=== PATIENT | female | born 1940 | race Caucasian/White ===

== ENCOUNTER 2022-02-08 20:05 | Emergency (ER) | payer MEDICARE, OTHER ==
[~2022-02-08] VITALS: Ht 165 cm; Wt 84.0 kg
[2022-02-08] MEDS ORDERED: TETANUS,DIPTH,PERTUSS P/F (BOOSTRIX) 0.5 ML VIAL IM ONE ×2 (20:15→21:26)
--- NOTE | 2022-02-08 20:22 | ED Fall/Injury ---
General Chief Complaint: Trauma-Non Activation Stated Complaint: FALL Nursing Triage Note: BROUGHT IN BY [facility] PT TRIPPED, FELL FROM STANDING POSITION. DENIES LOC. C/O RIGHT KNEE PAIN/SWELLING, FACIAL & HAND ABRAISIONS/LACERATIONS Source: patient History of Present Illness Date Seen by Provider: Feb 08, 2022 Time Seen by Provider: 20:03 Initial Comments PT ARRIVES VIA EMS FROM HOME--PT LIVES ALONE PT WAS WALKING OUTSIDE, WEARING "FLIP-FLOPS" AND STUBBED/CAUGHT HER TOE ON THE PAVEMENT AND FELL FORWARD ONTO PAVEMENT DID NOT ATTEMPT TO STAND AFTER THE INCIDENT, BUT WAS ABLE TO BEAR WEIGHT WHEN ASSISTED TO STAND FOR EMS. HAS PAIN AND ABRASIONS TO FACE AND PALMS HAS SWELLING AND BRUISING TO RIGHT KNEE, BUT STATES IT DOES NOT HURT. DENIES NECK OR BACK PAIN DENIES HIP OR LEG PAIN DENIES ARM PAIN DENIES HEADACHE DENIES VISION CHANGES NO MIS-ALIGNMENT OF TEETH OR BITING TONGUE NO DIZZINESS NO PARESTHESIAS OR MOTOR DEFICITS NO CHEST PAIN OR SHORTNESS OF BREATH NO ABDOMINAL PAIN OR NAUSEA/VOMITING PT HAS NOT TAKEN HER BLOOD PRESSURE MEDICATION TODAY PT IS ON 81 MG ASPIRIN, NO OTHER BLOOD THINNERS PT IS CURRENTLY ON PREDNISONE FOR "HIGH PLATELETS"--STARTED BY DR. MONCADA LAST WEEK. DOES NOT SEE HEMATOLOGY/ONCOLOGY. PT HAS HISTORY OF POLYCYTHEMIA PCP: DR. MONCADA Allergies and Home Medications Allergies Coded Allergies: codeine (Unverified Allergy, Unknown, 02/08/22) Patient Home Medication List Home Medication List Reviewed: Yes Cephalexin (Cephalexin) 500 Mg Tablet, 500 MG PO QID Prescribed by: WESLEY ESPINOZA on 02/08/222153 Tramadol HCl (Ultram) 50 Mg Tablet, 50 MG PO Q4H Prescribed by: WESLEY ESPINOZA on 02/08/222221 Review of Systems Review of Systems Constitutional: no symptoms reported Eyes: No Symptoms Reported Ears, Nose, Mouth, Throat: see HPI Respiratory: no symptoms reported Cardiovascular: no symptoms reported Gastrointestinal: no symptoms reported Genitourinary: no symptoms reported Musculoskeletal: see HPI Skin: see HPI Psychiatric/Neurological: No Symptoms Reported Past Utiqhgh-Qtglxq-Tikmya Hx Patient Social History Tobacco Use?: No Substance use?: No Alcohol Use?: Yes Alcohol Frequency: Once in a while Pt feels they are or have been: No Immunizations Up To Date First/Initial COVID19 Vaccinat: X3 Past Medical History Surgery/Hospitalization HX: CABG, CHOLECYSTECTOMY, APPENDECTOMY, HTN, POLYCYTHEMIA Surgeries: Yes Appendectomy, Cardiac, CABG, Gallbladder Respiratory: No Cardiac: Yes Coronary Artery Disease, High Cholesterol, Hypertension Neurological: No MANAGER CT History: Menopausal Genitourinary: No Gastrointestinal: No Musculoskeletal: No Endocrine: No HEENT: No Cancer: No Psychosocial: No Integumentary: No Blood Disorders: Yes (POLYCYTHEMIA) Physical Exam Vital Signs Vital Signs - First Documented 02/08/22 20:05 Temp 36.8 Pulse 74 Resp 16 B/P (MAP) 237/85 (135) Pulse Ox 97 O2 Delivery Room Air Capillary Refill : Less Than 3 Seconds Height, Weight, BMI Height: '" Weight: lbs. oz. kg; 30.00 BMI Method: General Appearance: WD/WN, no apparent distress HEENT: PERRL/EOMI, TMs normal, pharynx normal, other (EXTENSIVE ABRASIONS TO MID FACE FROM FOREHEAD TO CHIN, WITH BRUISING AND SWELLING TO FOREHEAD, NOSE AND LOWER LIP/CHIN AREA. NO DEFORMITY. NO INTRA-ORAL INJURY. NO TMJ TENDERNESS. EARLY PERIORBITAL HEMATOMAS. GLOBES ARE NORMAL. ) Neck: non-tender, full range of motion, supple, normal inspection Cardiovascular: normal peripheral pulses, regular rate, rhythm, no edema, no JVD, no murmur Respiratory: chest non-tender, normal breath sounds, no respiratory distress, no accessory muscle use Peripheral Pulses: 2+ Dorsalis Pedis (R), 2+ Left Dors-Pedis (L), 2+ Radial Pulses (R), 2+ Radial Pulses (L) Gastrointestinal: normal bowel sounds, non tender, soft Back: normal inspection, no CVA tenderness, no vertebral tenderness Extremities: normal range of motion, no pedal edema, other (ABRASIONS AND BRISING TO PALMS; RIGHT PALM AT BASE OF 5TH FINGER WITH 2 CM MACERATED AND CONTAMINATED LACERATION. NO BLEEDING. SWELLING AND ABRASION AND ECCHYMOSIS TO RIGHT KNEE-SLIGHT TENDERNESS. MINOR ABRASIONS TO LEFT KNEE--NON-TENDER, ECCHYMOSIS TO RIGHT FOREARM--NON-TENDER. FULL ROM OF ALL EXTREMITIES., MOTOR/SENSORY/VASCULAR INTACT. NEARLY ALL ABRASIONS HAVE SOME CONTAMINATION WITH DIRT AND ASPHALT AND GRIME. ) Neurologic/Psychiatric: eyelet riveter II-XII nml as tested, no motor/sensory deficits, alert, normal mood/affect, oriented x 3; No abnormal cerebellar tests Skin: normal color, warm/dry, other (INJURIES NOTED ABOVE) Madina Coma Score Best Eye Response: (4) Open Spontaneously Best Verbal Response: (5) Oriented Best Motor Response: (6) Obeys Commands Madina Total: 15 Progress/Results/Core Measures Results/Orders Lab Results Laboratory Tests Test 02/08/22 20:16 Range/Units White Blood Count 15.8 H 4.3-11.0 10^3/uL Red Blood Count 4.06 3.80-5.11 10^6/uL Hemoglobin 12.1 11.5-16.0 g/dL Hematocrit 37 35-52 % Mean Corpuscular Volume 91 80-99 fL Mean Corpuscular Hemoglobin 30 25-34 pg Mean Corpuscular Hemoglobin Concent 33 32-36 g/dL Red Cell Distribution Width 16.1 H 10.0-14.5 % Platelet Count 380 130-400 10^3/uL Mean Platelet Volume 10.1 9.0-12.2 fL Immature Granulocyte % (Auto) 1 % Neutrophils (%) (Auto) 80 H 42-75 % Lymphocytes (%) (Auto) 13 12-44 % Monocytes (%) (Auto) 6 0-12 % Eosinophils (%) (Auto) 0 0-10 % Basophils (%) (Auto) 0 0-10 % Neutrophils # (Auto) 12.7 H 1.8-7.8 10^3/uL Lymphocytes # (Auto) 2.0 1.0-4.0 10^3/uL Monocytes # (Auto) 0.9 0.0-1.0 10^3/uL Eosinophils # (Auto) 0.0 0.0-0.3 10^3/uL Basophils # (Auto) 0.0 0.0-0.1 10^3/uL Immature Granulocyte # (Auto) 0.2 H 0.0-0.1 10^3/uL Neutrophils % (Manual) 80 % Lymphocytes % (Manual) 13 % Monocytes % (Manual) 7 % Blood Morphology Comment NORMAL Prothrombin Time 14.5 12.2-14.7 SEC INR Comment 1.1 0.8-1.4 Activated Partial Thromboplast Time 26 24-35 SEC Sodium Level 137 135-145 MMOL/L Potassium Level 3.9 3.6-5.0 MMOL/L Chloride Level 103 98-107 MMOL/L Carbon Dioxide Level 21 21-32 MMOL/L Anion Gap 13 5-14 MMOL/L Blood Urea Nitrogen 28 H 7-18 MG/DL Creatinine 0.83 0.60-1.30 MG/DL Estimat Glomerular Filtration Rate 70 BUN/Creatinine Ratio 34 Glucose Level 131 H 70-105 MG/DL Calcium Level 9.4 8.5-10.1 MG/DL Corrected Calcium 9.7 8.5-10.1 MG/DL Total Bilirubin 0.5 0.1-1.0 MG/DL Aspartate Amino Transf (AST/SGOT) 24 5-34 U/L Alanine Aminotransferase (ALT/SGPT) 32 0-55 U/L Alkaline Phosphatase 79 40-136 U/L Total Protein 7.4 6.4-8.2 GM/DL Albumin 3.6 3.2-4.5 GM/DL My Orders Orders - WESLEY ESPINOZA DO Ed Iv/Invasive Line Start (02/08/22 20:09) Monitor-Rhythm Ecg Trace Only (02/08/22 20:09) Ct Head/Face/Cervical Wo (02/08/22 20:09) Cbc With Automated Diff (02/08/22 20:09) Comprehensive Metabolic Panel (02/08/22 20:09) Protime With Inr (02/08/22 20:09) Partial Thromboplastin Time (02/08/22 20:09) Chest 1 View, Ap/Pa Only (02/08/22 20:09) Knee, Right, 3 Views (02/08/22 20:09) Pelvis 1 To 2 Views (02/08/22 20:09) Hand, 3 Views, Bilateral (02/08/22 20:09) Dipht,Pertuss(Acell),Tet Adult (Boostrix (02/08/22 20:15) Manual Differential (02/08/22 20:16) Dipht,Pertuss(Acell),Tet Adult (Boostrix (02/08/22 21:26) Wound Dressing-Ed (02/08/22 21:29) Rx-Mupirocin 2% Oint (Rx-Bactroban) (02/08/22 21:29) Cefazolin Injection (Ancef Injection) (02/08/22 21:30) Hydralazine Injection (Apresoline Inject (02/08/22 22:00) Rx-Tramadol Hcl (Rx-Ultram) (02/08/22 22:22) Medications Given in ED Current Medications Medications Dose Ordered Sig/Liam Route Start Time Stop Time Status Last Admin Dose Admin Cefazolin Sodium 1,000 mg ONCE ONCE IV 02/08/22 21:30 02/08/22 21:31 DC 02/08/22 21:40 1,000 MG Diphtheria/ Tetanus/Acell Pertussis 0.5 ml ONCE ONCE IM 02/08/22 20:15 02/08/22 20:16 DC 02/08/22 21:29 0.5 ML Hydralazine HCl 10 mg ONCE ONCE IV 02/08/22 22:00 02/08/22 22:01 DC 02/08/22 22:03 10 MG Vital Signs/I&O 02/08/22 20:05 Temp 36.8 Pulse 74 Resp 16 B/P (MAP) 237/85 (135) Pulse Ox 97 O2 Delivery Room Air Blood Pressure Mean: 135 Progress Progress Note : Progress Note UNEVENTFUL ER STAY FAMILY [facility]ERS ARE HERE WITH PT PT FEELS COMFORTABLE GOING HOME PT REPEATEDLY DECLINES PAIN MEDICATIONS GIVEN: -DPT VACCINE -IV ANTIBIOTICS -HYDRALAZINE FOR HTN Diagnostic Imaging Comments XRAYS--PER RADIOLOGIST REPORTS AT 2147 CXR-- FINDINGS: Single view chest. There are postoperative changes along midline of the chest. Heart and pulmonary vasculature are normal. Lungs and pleural spaces clear. No acute osseous abnormality. IMPRESSION: No acute process. PELVIS-- FINDINGS: There is postoperative change in the right hemipelvis. No fracture or dislocation. IMPRESSION: No acute osseous abnormality. BILATERAL HANDS-- FINDINGS: 3 views of each hand. There is no acute fracture or dislocation on either side with narrowing and spurring at the 1st carpometacarpal joint spaces, bilaterally. Degenerative changes noted about the 5th metacarpal phalangeal joint on the right with punctate hyperdensities, age indeterminate. IMPRESSION: 1. Degenerative findings as above. No fracture. 2. Nonspecific soft tissue densities at the 5th metacarpal phalangeal joint on the right, age indeterminate. RIGHT KNEE-- FINDINGS: 3 views of the knee. There is a large area of soft tissue swelling anterior to the patella with subcutaneous air possible. There is a moderate joint effusion. There is moderate patellofemoral narrowing and spurring. Moderate narrowing and spurring seen in the medial and lateral joint compartments. No fracture or dislocation. There are clips in the medial soft tissues of the extremity. IMPRESSION: 1. Chronic osseous changes with no acute fracture. 2. Soft tissue swelling with possible air anteriorly, correlate for laceration. 3. Joint effusion. CT HEAD/MAXILLOFACIALS/CERVICAL SPINE--PER RADIOLOGIST REPORT AT 2211 FINDINGS: CT BRAIN: There is an anterior midline scalp hematoma. Subcutaneous air is noted suggesting laceration There is no intracranial hemorrhage with no acute infarct. No mass, mass effect or midline shift. No hydrocephalus. The calvarium is intact. Mastoid air cells clear. IMPRESSION: Scalp hematoma with a likely laceration with secondary subcutaneous air. No acute intracranial process. CT MAXILLOFACIAL: Comminuted bilateral nasal bone fractures noted with surrounding soft tissue swelling. Subcutaneous air within the anterior soft tissues of the nose also noted. There is a fracture through the mid aspect of the septum of the nose which is deviated towards the left. The remaining osseous structures appear intact. There is mucosal thickening within the sinuses. The orbits intact. Post septal spaces unremarkable. There is a right paracentral heterogeneous soft tissue within the posterior nasopharynx, likely hemorrhage. IMPRESSION; 1. Comminuted bilateral nasal bone fractures with overlying subcutaneous swelling and air. 2. Comminuted fracture of the nasal septum. Otherwise chronic findings as above. Reviewed: Reviewed by Me Departure Impression Primary Impression: Fall from standing Additional Impressions: Vixbrkunpv-lybhzptoi-pioiobg (DPT) vaccination administered at current visit Abrasion, multiple sites Abrasion of multiple sites of hand and finger RIGHT KNEE CONTIUSION AND ABRASION BILATERAL HAND CONTUSIONS CONTAMINATED LACERATION TO RIGHT PALM Closed head injury without loss of consciousness CONTAMINATED WOUNDS OF MULTIPLE SITES HTN (hypertension) CLOSED NASAL BONE FRACTURES Neck strain Disposition: 01 HOME, SELF-CARE Condition: Stable Departure-Patient Inst. Decision time for Depature: 22:20 Referrals: KAUSHIK KENNEDY MD, LISA A MD Patient Instructions: Cervical Muscle Strain (DC), Closed Head Injury (DC), DASH Diet, General Trauma (DC), High Blood Pressure (DC), Nose Fracture (DC), Preventing Falls in Older Adults, Using Cold for Pain, Wound Care (DC) Add. Discharge Instructions: ICE TO SORE AREAS AT 20 MINUTE INTERVALS CLEAN WOUNDS TWICE A DAY WITH ANTIBACTERIAL SOAP AND WATER, APPLY ANTIBIOTIC OINTMENT AND FRESH DRESSINGS TO WOUNDS ELEVATE ARMS AND LEGS MUCH POSSIBLE TAKE YOUR REGULAR MEDICATIONS PRESCRIBED FOLLOW UP WITH DR. KENNEDY, ENT, FOR NASAL FRACTURES--CALL IN THE MORNING TO SCHEDULE APPOINTMENT. FOLLOW UP WITH DR. MONCADA FOR RECHECK OF WOUNDS IN 2-3 DAYS All discharge instructions reviewed with patient and/or family. Voiced understanding. Scripts Tramadol HCl (Ultram) 50 Mg Tablet 50 MG PO Q4H for Pain, #20 TAB Prov: WESLEY ESPINOZA DO 02/08/22 Cephalexin (Cephalexin) 500 Mg Tablet 500 MG PO QID, #40 TAB Prov: WESLEY ESPINOZA DO 02/08/22 WESLEY ESPINOZA DO Feb 08, 2022 20:22
[2022-02-08 20:23] LABS: BASOPHILS % (AUTO) 0 % (0-10); EOSINOPHILS % (AUTO) 0 % (0-10); HEMATOCRIT 37 % (35-52); HEMOGLOBIN 12.1 g/dL (11.5-16.0); LYMPHOCYTES % (AUTO) 13 % (12-44); MEAN CORPUSCULAR HEMOGLOBIN 30 pg (25-34); MEAN CORPUSCULAR HGB CONC 33 g/dL (32-36); MEAN CORPUSCULAR VOLUME 91 fL (80-99); MEAN PLATELET VOLUME 10.1 fL (9.0-12.2); MONOCYTES # (AUTO) 0.9 10^3/uL (0.0-1.0); MONOCYTES % (AUTO) 6 % (0-12); NEUTROPHILS # (AUTO) 12.7 10^3/uL (1.8-7.8); NEUTROPHILS % (AUTO) 80 % (42-75); PLATELET COUNT 380 10^3/uL (130-400); WHITE BLOOD COUNT 15.8 10^3/uL (4.3-11.0)
[2022-02-08 20:34] LABS: INR 1.1 (0.8-1.4); PROTHROMBIN TIME PATIENT 14.5 SEC (12.2-14.7)
[2022-02-08 20:46] LABS: LYMPHOCYTES % (MANUAL) 13 %; MONOCYTES % (MANUAL) 7 %; NEUTROPHILS % (MANUAL) 80 %; RBC MORPH NORMAL
--- NOTE | 2022-02-08 21:26 | Diagnostic Imaging Report ---
INDICATION: Fall, pain. EXAMINATION: Pelvis, 02/08/2022. FINDINGS: There is postoperative change in the right hemipelvis. No fracture or dislocation. IMPRESSION: No acute osseous abnormality. Dictated by: Dictated on workstation # [id number]
--- NOTE | 2022-02-08 21:28 | Diagnostic Imaging Report ---
INDICATION: Fall, pain. EXAMINATION: Right knee, 02/08/2022. FINDINGS: 3 views of the knee. There is a large area of soft tissue swelling anterior to the patella with subcutaneous air possible. There is a moderate joint effusion. There is moderate patellofemoral narrowing and spurring. Moderate narrowing and spurring seen in the medial and lateral joint compartments. No fracture or dislocation. There are clips in the medial soft tissues of the extremity. IMPRESSION: 1. Chronic osseous changes with no acute fracture. 2. Soft tissue swelling with possible air anteriorly, correlate for laceration. 3. Joint effusion. Dictated by: Dictated on workstation # [id number]
[2022-02-08] MEDS ORDERED: RX-MUPIROCIN (BACTROBAN) 2% OINT 22 GM TUBE TOP STA (21:29)
--- NOTE | 2022-02-08 21:29 | Diagnostic Imaging Report ---
INDICATION: Bilateral hand pain. EXAMINATION: Bilateral hands, 02/08/2022. FINDINGS: 3 views of each hand. There is no acute fracture or dislocation on either side with narrowing and spurring at the 1st carpometacarpal joint spaces, bilaterally. Degenerative changes noted about the 5th metacarpal phalangeal joint on the right with punctate hyperdensities, age indeterminate. IMPRESSION: 1. Degenerative findings as above. No fracture. 2. Nonspecific soft tissue densities at the 5th metacarpal phalangeal joint on the right, age indeterminate. Dictated by: Dictated on workstation # [id number]
[2022-02-08] MEDS ORDERED: ceFAZolin INJECTION 1,000 MG VIAL IV ONE (21:30)
[2022-02-08 21:34] LABS: ALBUMIN 3.6 GM/DL (3.2-4.5); BILIRUBIN,TOTAL 0.5 MG/DL (0.1-1.0); CALCIUM 9.4 MG/DL (8.5-10.1); CREATININE SERUM 0.83 MG/DL (0.60-1.30); POTASSIUM 3.9 MMOL/L (3.6-5.0); TOTAL PROTEIN 7.4 GM/DL (6.4-8.2)
--- NOTE | 2022-02-08 21:46 | Diagnostic Imaging Report ---
INDICATION: Fall, pain. EXAMINATION: Chest, 02/08/2022. FINDINGS: Single view chest. There are postoperative changes along midline of the chest. Heart and pulmonary vasculature are normal. Lungs and pleural spaces clear. No acute osseous abnormality. IMPRESSION: No acute process. Dictated by: Dictated on workstation # [id number]
[2022-02-08] MEDS ORDERED: CEPH500T PO (21:54)
[2022-02-08] MEDS ORDERED: hydrALAZINE (APESOLINE) 20 MG/ML VIAL IV ONE (22:00)
--- NOTE | 2022-02-08 22:00 | Diagnostic Imaging Report ---
INDICATION: Fall onto face. Bruising and swelling of forehead and nose. Pain. EXAMINATION: CT brain, CT maxillofacial and CT cervical spine, 02/08/2022. All CT scans use one or more of the following dose optimizing techniques: automated exposure control, MA and/or KvP adjustment based on patient size and exam type or iterative reconstruction. FINDINGS: CT BRAIN: There is an anterior midline scalp hematoma. Subcutaneous air is noted suggesting laceration There is no intracranial hemorrhage with no acute infarct. No mass, mass effect or midline shift. No hydrocephalus. The calvarium is intact. Mastoid air cells clear. IMPRESSION: Scalp hematoma with a likely laceration with secondary subcutaneous air. No acute intracranial process. CT MAXILLOFACIAL: Comminuted bilateral nasal bone fractures noted with surrounding soft tissue swelling. Subcutaneous air within the anterior soft tissues of the nose also noted. There is a fracture through the mid aspect of the septum of the nose which is deviated towards the left. The remaining osseous structures appear intact. There is mucosal thickening within the sinuses. The orbits intact. Post septal spaces unremarkable. There is a right paracentral heterogeneous soft tissue within the posterior nasopharynx, likely hemorrhage. IMPRESSION; 1. Comminuted bilateral nasal bone fractures with overlying subcutaneous swelling and air. 2. Comminuted fracture of the nasal septum. Otherwise chronic findings as above. Dictated by: Dictated on workstation # [id number]
[2022-02-08] MEDS ORDERED: TRAM-42 PO (22:22)
[2022-02-08 22:23] VITALS: BP 170/69
== END 2022-02-08 22:26 | disposition home or self-care (01) ==
LOC: EDUNIT# 20:05 → ER 20:47
DX: S02.2XXA Fracture of nasal bones, initial encounter for closed fracture (principal); S16.1XXA Strain of muscle, fascia and tendon at neck level, initial encounter; S61.411A Laceration without foreign body of right hand, initial encounter; S80.01XA Contusion of right knee, initial encounter; S09.90XA Unspecified injury of head, initial encounter; I10 Essential (primary) hypertension; Z23 Encounter for immunization; W18.30XA Fall on same level, unspecified, initial encounter; Y93.01 Activity, walking, marching and hiking
CPT/HCPCS: 36415; 70450; 70486; 71045; 72125; 72170; 73562; 80053; 85007; 85027; 85610; 85730; 90471; 90715; 93041; 96374; 96375